=== PATIENT | female | born 1975 | race Caucasian/White ===

== ENCOUNTER → 2016-09-18 | Outpatient (CLI) | payer OTHER ==
[2016-09-18 17:31] LABS: BASOPHILS # (AUTO) 0.03 10*3/UL; BASOPHILS % (AUTO) 0.3 % (0-1); EOSINOPHILS % (AUTO) 2.8 % (0-8); HEMATOCRIT 43.7 % (37.0-47.0); LYMPHOCYTES # (AUTO) 3.29 10*3/uL; MEAN CORPUSCULAR HEMOGLOBIN 29.1 PG (27-31); MEAN CORPUSCULAR HGB CONC 34.3 g/dL (33-37); MEAN CORPUSCULAR VOLUME 84.7 FL (81-99); MEAN PLATELET VOLUME 10.4 FL (7.4-12.2); MONOCYTES # (AUTO) 0.74 10*3/UL (0.3-0.8); MONOCYTES % (AUTO) 6.8 % (5-15); NEUTROPHILS # (AUTO) 6.46 10*3/UL; NEUTROPHILS % (AUTO) 59.4 % (50-80); RED BLOOD COUNT 5.16 10^6/uL (4.20-5.40)
[2016-09-18 17:33] LABS: PLATELET MORPHOLOGY COMMENT NORMAL MORPHOLOGY (NORM); RBC MORPHOLOGY COMMENT NORMAL MORPHOLOGY (NORM); WBC MORPHOLOGY COMMENT NORMAL MORPHOLOGY (NORM)
[2016-09-18 17:41] LABS: BLOOD UREA NITROGEN 10 mg/dL (7-22); BUN/CREATININE RATIO 11.11 (6-20); CALCIUM 9.1 mg/dL (8.7-10.7); EST GLOMERULAR FILTRATION > 60 (>60 ml/min/1.73m(2)); SERUM ALBUMIN 4.2 g/dL (3.5-4.8)
== END ==
LOC: LAB 17:21
PROVIDERS: ATTEND Obstetrics & Gynecology Gynecology
DX: R10.84 Generalized abdominal pain (principal); N85.2 Hypertrophy of uterus
CPT/HCPCS: 36415; 80053; 85025

== ENCOUNTER → 2016-09-19 | Outpatient (CLI) | payer OTHER ==
--- NOTE | 2016-09-19 14:10 | DI ---
PELVIC ULTRASOUND, 09/19/2016 10:00 AM Clinical History: Enlarged uterus. Previous Exam: 11/10/2008. Technique: Transvaginal scans are performed. The uterus measures 75 x 85 x 115 mm and the central uterine chart measures 7 mm. In the fundus is an inhomogeneous mass measuring 55-60 mm in diameter consistent with a uterine fibroid. There are least 2 additional smaller lesions in the body of the uterus that are consistent with uterine fibroids. Th keith are located in the posterior wall in the anterior wall of the body of the uterus and measure appr oximately 17 mm and 15 mm in diameter, respectively. The ovaries are normal and demonstrate vascular flow. There is a fluid collection in the cul-de-sac surrounding the ovaries and this is slightly grea ter than a physiologic amount. No pelvic mass is seen. Readin. Enlarged uterus with a large uterine fibroid in the fundus measuring 55-60 mm in diameter and at least 2 smaller lesions less than 20 mm in diameter located in the anterior and posterior abdullahi of th e body of the uterus. The central uterine stripe measures 7 mm. 2. The ovaries are normal. There is a small amount of fluid in the cul-de-sac that is greater than p hysiologic.
== END ==
LOC: US 09:54
PROVIDERS: ATTEND Obstetrics & Gynecology Gynecology
DX: N85.2 Hypertrophy of uterus (principal); D25.9 Leiomyoma of uterus, unspecified
CPT/HCPCS: 76830